=== PATIENT | male | born 1960 ===

== ENCOUNTER 2020-01-30 10:50 | Inpatient (IN) | payer BC ==
[~2020-01-30] VITALS: Ht 182.9 cm; Wt 105.0 kg
[~2020-01-30 10:50] MED LIST: ALLOPURINOL300 MG PO; CIPRO 500MG TA500 MG PO; COLCHICINE PO; ENALAPRIL10 MG PO; METRONIDAZOLE500 MG PO; PERCOCET 325 MG1 TA2 PO; PHENERGAN 25 TA25 MG PO; PHENERGAN25 MG RC; TRIAMTERENE/HCT1 CAP PO; TRIAMTERENE/HCT1 TAB PO; ZOCOR40 MG PO
[2020-04-30] VITALS (11 sets, daily range): BP systolic 100–130; BP diastolic 58–87; PULSE 50–73; TEMP 97.4–99
[2020-04-30] MEDS ORDERED: WELLBUTRIN SR150 M1 PO (02:29)
[2020-04-30] MEDS ORDERED: LOPRESSOR 550 MG/TAB PO (02:29)
[2020-04-30] MEDS ORDERED: GLUCOPHAGE500 MG/TAB PO (02:30)
[2020-04-30] MEDS ORDERED: ZYLOPRIM 300MG300 MG PO (02:32)
[2020-04-30] MEDS ORDERED: ZOCOR 40MG40 MG PO (02:33)
[2020-04-30] MEDS ORDERED: SINGULAIR 110 MG/TAB PO (02:33)
[2020-04-30] MEDS ORDERED: FOLIC ACID 11 MG/TA1 PO (02:34)
[2020-04-30] MEDS ORDERED: DYAZIDE 25 MG-31 CAP PO (02:34)
[2020-04-30] MEDS ORDERED: VITAMIN C500 MG PO (02:34)
[2020-04-30] MEDS ORDERED: IRON TABLETS325 MG PO (02:34)
[2020-04-30] MEDS ORDERED: ONE-A-DAY ESSE1 EACH PO (02:39)
--- NOTE | 2020-04-30 05:15 | NUR ---
ADMITTED TO ROOM 328 FOR LTK SURGERY TODAY. IS AMBULATORY. IS ALERT AND ORIENTED X4.
--- NOTE | 2020-04-30 05:42 | NUR ---
PT TAKES SCHEDULED PREOP MEDS AT THIS TIME.
--- NOTE | 2020-04-30 06:15 | NUR ---
TO SURGERY PER BED.
--- NOTE | 2020-04-30 10:40 | NUR ---
PATIENT IS ORIENTED BUT DROWSY POST OP. VSS. DENIES PAIN IN LLE. LTK DRESSING IS CD&I WITH BULKY ACEWRAP AND ICE PACK INPLACE. TEDS TO RLE. SCD'S TO BLE. POSITIVE PEDAL PULSES TO BLE. PATIENT DENIES NEED TO VOID AT THIS TIME. NO C/O N/V. IV FLUIDS INFUSING VIA PUMP INTO RIGHT FORARM. LIQUIDS AT BEDSIDE. BS 101. HEAD TO TOE ASSESSMENT WNL. ORIENTED TO ROOM. CALL LIGHT IN REACH.
--- NOTE | 2020-04-30 12:00 | NUR ---
SW met with the patient to discuss discharge plan. The patient lives alone in [place]. He reports independence with ADLs and has a walker. The patient's PCP is Dr. Fly Singleton and he receives his medications at [facility] He reports no difficulties obtaining his meds. The patient does not have advanced directives in EMR, but he reports that he does have a DPOA-HC completed and that his son, Satya (ph#[phone]), is his DPOA-HC. Satya is in the and lives in [place]. The patient plans to return home and receive outpatient PT at [facility] upon discharge. No additional needs at this time.
--- NOTE | 2020-04-30 12:00 | NUR ---
PATIENT SITTING UP IN BED WITH LUNCH TRAY. NO C/O N/V. PATIENT NOW C/O PAIN IN LLE AT 3 TO 4 ON PAIN SCALE. GAVE PRN ROXICODONE, TWO TABS WITH MEAL. WILL MONITOR.
--- NOTE | 2020-04-30 12:29 | NUR ---
First visit from the field artillery operations man. No needs right now.
--- NOTE | 2020-04-30 21:19 | NUR ---
Medicated with HS meds including Oxycodone 10mg po. Standby assist to bathroom then to bed. Hesitant to place alot weight on his left leg. Drsg to left knee intact with andrew wrap from thigh to foot. Ice pack replaced to left knee. IVF infusing to right wrist without redness or swelling.
[2020-05-01] VITALS (7 sets, daily range): BP systolic 119–142; BP diastolic 71–91; PULSE 82–97; TEMP 97.7–99
--- NOTE | 2020-05-01 03:00 | NUR ---
Oxycodone 10mg po for left knee pain 03/14. Assisted to bathroom, voids and back to bed.
--- NOTE | 2020-05-01 04:00 | NUR ---
IV antibiotic complete, IV capped at this time.
--- NOTE | 2020-05-01 04:24 | NUR ---
MEDICATED WITH TRAMADOL FOR LEFT KNEE PAIN.
--- NOTE | 2020-05-01 04:33 | NUR ---
MEDICATED WITH MORPHINE 2MG IVP FOR ABDOMINAL PAIN 03/14.
[2020-05-01 07:26] LABS: HEMATOCRIT 34.3 % (42.0-52.0); HEMOGLOBIN 10.8 g/dl (13.5-18.0)
--- NOTE | 2020-05-01 08:54 | NUR ---
PT UP IN BED EATING BREAKFAST. DR DE SANTIAGO IN TO SEE PT THIS AM. POSSIBLE DISCHARGE LATER TODAY. DRESSING TO LEFT KNEE CDI WITH OCCLUSIVE WRAP OVER INCISION. PT EATING AND DRINKING WITH NO NAUSEA OR VOMITING.
--- NOTE | 2020-05-01 14:24 | NUR ---
DRESSING CHANGE COMPLETE. INCISION CDI WITH WELL APPROXIMATED EDGES. PT DID WELL IN THERAPY. RESTING IN BED WITH ICE TO OPERATIVE SITE.
--- NOTE | 2020-05-01 21:00 | NUR ---
Pt. sitting up in bed at this time. Pt. is A&OX3, assessment complete. INT to rt. wrist. Dressing to lt. knee CDI. Pt. reports pain at a 4 on pain scale at this time. Pt. denies further needs, call light within reach.
[2020-05-02 03:47] VITALS: BP 152/83; PULSE 88; TEMP 97.8
[2020-05-02 07:25] VITALS: BP 124/78; PULSE 96; TEMP 98.5
--- NOTE | 2020-05-02 08:31 | NUR ---
PATIENT UP TO RECLINER FOR BREAKFAST. INDPENDENT IN ROOM. EATING AND DRINKING WITHOUT ANY S/S OF NAUSEA OR VOMITING. PAIN WELL CONTROLLED WITH PO MEDS. AQUACELL CDI NO DRAINAGE NOTED.
[2020-05-02] MEDS ORDERED: NORCO 325 MG-7.1 TAB PO (09:32)
[2020-05-02] MEDS ORDERED: ASPI325T6 PO (09:32)
[2020-05-02] MEDS ORDERED: SENOKOT S 50 MG1 TAB PO (09:33)
[2020-05-02] MEDS ORDERED: ROXICODONE 55 MG/TAB PO (09:33)
[2020-05-02 11:56] VITALS: BP 120/82; PULSE 92; TEMP 98.6
--- NOTE | 2020-05-02 14:18 | NUR ---
DISCHARGE INSTRUCTIONS REVIEWED WITH PATIENT QUESTIONS SOLICITED AND ANSWERED. PT CALLING FAMILY FOR RIDE.
--- NOTE | 2020-05-02 14:20 | NUR ---
REVIEWED DISCHARGE INSTRUCTIONS WITH PATIENT. QUESTIONS SOLICITED AND ANSWERED. PAIENT TO FAMILY BY WHEEL CHAIR.
== END 2020-05-02 14:30 | disposition home or self-care (01) | DRG 470 ==
LOC: JCC 04-30 05:14
PROVIDERS: ADMIT Orthopaedic Surgery
PROC: 0SRD0J9 Replacement of Left Knee Joint with Synthetic Substitute, Cemented, Open Approach (ICD-10-PCS; principal; 2020-04-30 07:30)
DX: M17.12 Unilateral primary osteoarthritis, left knee (principal)
CPT/HCPCS: C1776; J2250; J2704; J3010; J3370; J7050; J7120

== ENCOUNTER 2020-11-14 08:53 | Emergency (ER) | payer BC ==
[~2020-11-14] VITALS: Ht 182.9 cm; Wt 100.0 kg
[~2020-11-14 08:53] MED LIST changes: +ASPI325T6 PO; +DYAZIDE 25 MG-31 CAP PO; +FOLIC ACID 11 MG/TA1 PO; +GLUCOPHAGE500 MG/TAB PO; +IRON TABLETS325 MG PO; +LOPRESSOR 550 MG/TAB PO; +NORCO 325 MG-7.1 TAB PO; +ONE-A-DAY ESSE1 EACH PO; +ROXICODONE 55 MG/TAB PO; +SENOKOT S 50 MG1 TAB PO; +SINGULAIR 110 MG/TAB PO; +VITAMIN C500 MG PO; +WELLBUTRIN SR150 M1 PO; +ZOCOR 40MG40 MG PO; +ZYLOPRIM 300MG300 MG PO
[2020-11-14 08:58] VITALS: TEMP 97.6
[2020-11-14 09:14] LABS: BASO # 0.1 (0.0-0.2); BASO % 0.7 % (0.0-2.0); EOS # 0.2 (0.0-0.7); EOS % 2.6 % (0-4.0); GRAN # 5.3 (1.4-6.5); GRAN % 73.5 % (42.2-75.2); HEMATOCRIT 42.3 % (42.0-52.0); HEMOGLOBIN 13.1 g/dl (13.5-18.0); LYMPH # 0.9 (1.2-3.4); LYMPH % 11.9 % (20.0-51.0); MEAN CELL VOLUME 79 fl (80.0-100.0); MEAN CORPUSCULAR HEMOGLOBIN 25 pg (27.0-31.0); MEAN CORPUSCULAR HGB CONC 31 g/dl (33.0-37.0); MEAN PLATELET VOLUME 10.4 fl (7.4-10.4); MONO # 0.8 (0.1-0.6); PLATELET COUNT 198 K/mm3 (130-400); RED BLOOD COUNT 5.34 M/mm3 (4.20-5.60); REDCELL DISTRIBUTION WIDTH-CV 16.9 % (11.5-14.5)
[2020-11-14 09:28] LABS: ALANINE AMINOTRANSFERASE 19 U/L (4-49); ALBUMIN 4.6 gm/dL (3.5-5.0); ALKALINE PHOSPHATASE 80 U/L (50-136); ANION GAP 9 mmol/L (7-16); AST,SGOT 23 U/L (15-37); BILIRUBIN,TOTAL 0.6 mg/dL (0.0-1.0); BLOOD UREA NITROGEN 11 mg/dL (9-20); CALCIUM 9.8 mg/dL (8.4-10.2); CARBON DIOXIDE 31 mmol/L (22-30); CHLORIDE 98 mmol/L (98-107); CREATININE, serum 0.81 (0.66-1.25); GLUCOSE 125 mg/dL (74-106); POTASSIUM 3.5 mmol/L (3.4-5.0); SODIUM 138 mmol/L (137-145); TOTAL PROTEIN 7.5 gm/dL (6.4-8.2)
[2020-11-14 09:36] LABS: PROTHROMBIN TIME 11.4 SECONDS (9.7-12.8)
[2020-11-14 09:38] LABS: PARTIAL THROMBOPLASTIN TIME 30.7 SECONDS (26.0-37.0)
[2020-11-14 09:40] LABS: TROPONIN-I < 0.012 ng/mL (0.000-0.035)
[2020-11-14 10:05] VITALS: BP 103/67; PULSE 94
== END 2020-11-14 10:05 | disposition short-term general hospital (02) ==
LOC: COL.ER 08:53
PROVIDERS: Emergency Medicine
DX: I21.3 ST elevation (STEMI) myocardial infarction of unspecified site (principal); Z88.1 Allergy status to other antibiotic agents; Z79.82 Long term (current) use of aspirin; Z79.84 Long term (current) use of oral hypoglycemic drugs
CPT/HCPCS: J1644; J2405; J3101; J7030